=== PATIENT | female | born 1990 | race American Indian/Alaskan Native ===

== ENCOUNTER 2018-09-05 16:27 | Outpatient (REF) | payer SELFPAY ==
--- NOTE | 2018-09-05 15:45 | PAPFT_PTH ---
PATIENT: Chikis Chong LOC: [facility] U#:[id number] AGE/SX: 28/F ROOM: RE09/05/[address]: Emani Shrestha : 1990 BED: DIS: 09/05/2018 SPEC #: [id number] RECD: 09/05/18 18:02 STATUS: ROLANDO REGenna #: [id number] ANGEL: 09/05/18 15:[address]: Emani Shrestha DEPT: [facility] Cytology RECD BY: Yojana Granado Tissues: 1 - CX/ENDOCX FOR PAP SMEARS Procedures: PAP THIN PREP/UVM Screening Comments: [id number]
== END 2018-09-05 16:47 ==
LOC: NCHCN 16:27
PROVIDERS: PCP Nurse Practitioner Family; Visit Provider Nurse Practitioner Family
DX: Z12.4 Encounter for screening for malignant neoplasm of cervix (principal); Z00.00 Encounter for general adult medical examination without abnormal findings
CPT/HCPCS: 88142

== ENCOUNTER 2019-09-14 19:26 | Emergency (ER) | payer MEDICAID, SELFPAY ==
[2019-09-14 19:30] VITALS: BP 146/78; PULSE 84; RESP 14; TEMP 36.7; O2SAT 99
--- NOTE | 2019-09-14 20:05 | ED.GENADUL_ITS ---
Discharge Plan Disposition Patient Disposition: HOME Condition: Stable Discharge Details Chief Complaint: AnimalBite Clinical Impression: Bitten by dog, subsequent encounter Primary Care Provider: Emani Shrestha ED Provider: Slick Mcbride Home Meds and New Rx's Prescriptions: New amoxicillin-pot clavulanate [Augmentin] 875-125 mg tablet 1 tab PO BID Qty: 13 RF: 0 Discharge Instructions Instructions: Animal Bite (ED) Additional Instructions: Please take antibiotic as prescribed. Please continue to monitor wound and allow for Steri-Strips to fall off on their own. Please follow-up with general surgery for wound reassessment. Call for an appointment. It was recommended that you received tetanus immunization today. You declined recommended treatment. You understand that you may have life-threatening or lifestyle modifying disease as result of not receiving immunization. Please contact your primary care physician to arrange follow-up. Return to the ER for any worsening or new concerning symptoms. Referrals: Emani Shrestha [Primary Care Provider] - Merry Pedraza DO [OSTEOPATHIC DOCTOR] - Discharge Data Discharge Date/Time-TO BE ENTERED AT DEPARTURE: 09/14/19 20:20 Medical Decision Making 29-year-old female here 20 days status post dog bite to left forearm, initially closed with suture, wound dehisced with suture removal and Steri-Strips were applied, now with concern for mild swelling and discomfort in the area. There is no erythema, warmth, fluctuance or significant discharge from the wound. The wound appears to be healing well under Steri-Strips. Out of an abundance of caution, I will prescribe course of Augmentin as she did not complete course of cephalosporin as initially prescribed. Patient is not up-to-date on tetanus, infectious never had tetanus immunization. I recommended immunization/IG today. Patient refuses treatment. I specifically explained to her the benefit of immunization and risk of not being immunized. Patient verbalized understanding of my concern and potential consequences of not immunizing and still declined. HPI General Mode of arrival: ambulatory . Date/Time Provider Initiated Documentation: 09/14/19 19:48 . Limitations to Documentation: no limitations . Information obtained by: patient . HPI Narrative: 29-year-old female here with chief complaint of concern for wound infection. Patient is 20 days status post dog bite to left forearm, initially closed with suture at outside hospital, wound dehisced with suture removal and Steri-Strips were applied but follow-up with outside hospital, now here with concern for mild swelling and discomfort in the area. No modifiers. Patient denies discharge. No associated fever. Related Data Home Medications Medication Instructions Recorded Confirmed amoxicillin-pot clavulanate 1 tab PO BID #13 tab 09/14/19 [Augmentin] Previous Rx's Medication Instructions Recorded amoxicillin-pot clavulanate 1 tab PO BID #13 tab 09/14/19 [Augmentin] Allergies Allergy/AdvReac Type Severity Reaction Status Date / Time cephalexin [From Keflex] Allergy Mild Headache Unverified 09/14/19 19:36 General Stated Complaint: AnimalBite MEET: 4 Review of Systems Constitutional Constitutional: Denies fever(s) Integumentary/Breasts Skin/Breast: Reports as per [facility] Social History Smoking/Tobacco Use Status: Former Tobacco Use Alcohol Intake: never Drug use: Never Do you feel safe at home: Yes Do you feel safe in your relationship?: Yes Exam Const General: cooperative HENMT Mouth: moist mucous membranes Resp Effort & Inspection: normal respiratory effort and able to speak in complete sentences Cardio Rate: regular rate and not tachycardic Rhythm: regular rhythm Pulses: radial pulses present on the left 2+ (Affected extremity) Skin Wounds: wounds noted (Left forearm 2 cm, Steri-Strips intact, healing, no discharge, no erythema ) Other: Mild swelling about wound with no fluctuance Neuro General: patient alert, patient awake, patient oriented x3 and tone normal Extrem General: no edema Course Vital Signs Vital signs: Vital Signs Temperature 36.7 C 09/14/19 19:30 Pulse 84 09/14/19 19:30 Respiratory Rate 14 09/14/19 19:30 Blood Pressure 146/78 H 09/14/19 19:30 Pulse Oximetry 99 09/14/19 19:30 Temperature 36.7 C 09/14/19 19:30 Pulse 84 09/14/19 19:30 Respiratory Rate 14 09/14/19 19:30 Respiratory Effort 09/14/19 19:37 Blood Pressure 146/78 H 09/14/19 19:30 Blood Pressure Position Sitting 09/14/19 19:30 Pulse Oximetry 99 09/14/19 19:30 Oxygen Delivery Method Room Air 09/14/19 19:30 Oxygen Flow Rate 0 09/14/19 19:30 Pain Level 2 09/14/19 19:30
[2019-09-14] MEDS: Amoxicillin 875/Clav. 125 TAB PO (20:15)
== END 2019-09-14 20:20 | disposition home or self-care (01) ==
PROVIDERS: Emergency Provider Student in an Organized Health Care Education/Training Program; PCP Nurse Practitioner Family
DX: S51.852D Open bite of left forearm, subsequent encounter (principal); W54.0XXD Bitten by dog, subsequent encounter; Z48.01 Encounter for change or removal of surgical wound dressing; M79.632 Pain in left forearm; Z53.29 Procedure and treatment not carried out because of patient's decision for other reasons
CPT/HCPCS: 99283

== ENCOUNTER 2019-12-19 16:05 | Emergency (ER) | payer MEDICAID, SELFPAY ==
[2019-12-19 16:15] VITALS: BP 146/83; PULSE 82; RESP 16; TEMP 36.5; O2SAT 99
[2019-12-19 16:25] LABS: Bilirubin Negative (Negative); Blood Moderate (Negative); Glucose Negative (Negative); Ketones Negative (Negative); Leukocyte Esterase Moderate (Negative); Nitrite Negative (Negative); Urobilinogen 0.2 EU/dL (Up TO 0.2)
[2019-12-19 16:34] LABS: Clarity Sl Cloudy (Clear)
[2019-12-19 16:35] LABS: Bacteria Moderate HPF (Negative); C & S Indicated? Yes; Casts Negative LPF (Negative); Crystals Negative HPF (Negative); Epithelial Cells Few HPF (Negative); Mucus Negative (Negative); WBC >50 HPF (0-5)
--- NOTE | 2019-12-19 16:35 | ED.GENADUL_ITS ---
Discharge Plan Disposition Patient Disposition: HOME Condition: Stable Discharge Details Clinical Impression: UTI (urinary tract infection) Primary Care Provider: Emani Shrestha ED Provider: Kamran Garcia Home Meds and New Rx's Prescriptions: New nitrofurantoin monohyd/m-cryst [Macrobid] 100 mg capsule 100 mg PO Q12H 7 Days Qty: 14 RF: 0 Discharge Instructions Instructions: Urinary Tract Infection in Women (ED) Additional Instructions: Macrobid as directed. Gnhv-lof-vhyenpk Tylenol, Motrin, Azo as directed. Plenty of fluids to avoid dehydration. Please watch for new or worsening symptoms and return to the ER for any concerns. Otherwise I recommend reaching out your primary care provider tomorrow for prompt outpatient reevaluation Medical Decision Making 29-year-old female with UTI symptoms that began yesterday. Denies fever, nausea, vomiting, vaginal bleeding or discharge. Clinically she appears well, nontoxic. Will obtain urinalysis and test. Low suspicion for pyelonephritis. Low suspicion for STI. She did take a single Augmentin today Laboratory values reveal urine moderate blood, moderate leuk esterase, 10-20 red cells, greater than 50 white cells. Moderate bacteria. Culture pending. negative Will provide prescription for Macrobid. Patient comfortable this plan and has no additional questions or concerns. Medical Records Medical records reviewed: Yes I reviewed the patient's medical records. Lab Data Lab results reviewed: Yes I reviewed the patient's lab results. Lab results narrative: 12/19/19 16:10 Urine - Reflex from Ua Urine Culture - Pending Laboratory Tests Range/Units 12/19/19 16:10 Urine Color (Yellow) Yellow Urine Clarity (Clear) Sl cloudy Urine pH (5-8) 7.0 Ur Specific [place] (1.005-1.025) 1.010 Urine Protein (Negative) mg/dL Negative Urine Ketones (Negative) mg/dL Negative Urine Blood (Negative) Moderate H Urine Nitrite (Negative) Negative Urine Bilirubin (Negative) Negative Urine Urobilinogen (Up TO 0.2) EU/dL 0.2 Ur Leukocyte Esterase (Negative) Moderate H Urine RBC (0-2) HPF 10-20 H Urine WBC (0-5) HPF >50 H Ur Epithelial Cells (Negative) HPF Few Urine Crystals (Negative) HPF Negative Urine Bacteria (Negative) HPF Moderate Urine Casts (Negative) LPF Negative Urine Mucus (Negative) Negative Ur Culture Indicated? Yes Urine Glucose (Negative) mg/dL Negative HPI General Mode of arrival: ambulatory . Date/Time Provider Initiated Documentation: 12/19/19 16:25 . Limitations to Documentation: no limitations . Information obtained by: patient . HPI Narrative: This is a 29-year-old female who denies any significant past medical history. She reports UTI symptoms that began yesterday. Reports mild yesterday worse today. Lower abdominal pressure, urinary frequency, dysuria, low back aching. She denies any fever, nausea, vomiting, vaginal bleeding or discharge. She took a single Augmentin today that she had leftover from a dog bite. Also took Motrin. These seem to have helped with her symptoms. Denies any other symptoms, denies recent trauma Related Data Home Medications Medication Instructions Recorded Confirmed nitrofurantoin monohyd/m-cryst 100 mg PO Q12H 7 Days #14 cap 12/19/19 [Macrobid] Previous Rx's Medication Instructions Recorded nitrofurantoin monohyd/m-cryst 100 mg PO Q12H 7 Days #14 cap 12/19/19 [Macrobid] Allergies Allergy/AdvReac Type Severity Reaction Status Date / Time cephalexin [From Keflex] Allergy Mild Headache Unverified 12/19/19 16:18 General Stated Complaint: Urinary MEET: 4 Review of Systems Constitutional Constitutional: Denies fever(s) Cardiovascular Cardiovascular: Denies chest pain and Denies dyspnea Respiratory Respiratory: Denies dyspnea Gastrointestinal Gastrointestinal: Reports abdominal pain, Denies nausea and Denies vomiting Genitourinary Genitourinary: Denies abnormal vaginal bleeding, Reports dysuria and Denies vaginal discharge Musculoskeletal Musculoskeletal: Reports back pain Integumentary/Breasts Skin/Breast: Denies rash [facility] Social History Smoking/Tobacco Use Status: Former Tobacco Use Smoking risk assessment performed?: Yes Alcohol Intake: never Drug use: Never Do you feel safe at home: Yes Do you feel safe in your relationship?: Yes Exam Const General: cooperative, healthy appearing, comfortable and no acute distress Orientation: alert and awake [facility] Head: normal to inspection, normocephalic and atraumatic Mouth: moist mucous membranes Eyes Conjunctivae: conjunctivae normal Sclera: sclerae normal Neck Neck: normal visual inspection, full ROM, trachea midline and supple Resp Effort & Inspection: normal respiratory effort and able to speak in complete sentences Auscultation: clear to auscultation bilaterally Cardio Rate: regular rate Rhythm: regular rhythm GI Palpation: soft, not firm, no guarding, not rigid and nontender Back/Spine/Pelvis Back: back tenderness (Diffuse mild lumbar) Skin General skin exam: no rashes or lesions noted Neuro General: patient alert, patient awake, moves all extremities and no focal motor deficits Sensory Exam: no sensory deficits noted Psych Appearance: grossly normal Mental Status: mental status grossly normal Course Vital Signs Vital signs: Vital Signs Temperature 36.5 C 12/19/19 16:15 Pulse 82 12/19/19 16:15 Respiratory Rate 16 12/19/19 16:15 Blood Pressure 146/83 H 12/19/19 16:15 Pulse Oximetry 99 12/19/19 16:15 Temperature 36.5 C 12/19/19 16:15 Temperature Source Skin 12/19/19 16:15 Pulse 82 12/19/19 16:15 Respiratory Rate 16 12/19/19 16:15 Respiratory Effort Non-Labored 12/19/19 16:15 Blood Pressure 146/83 H 12/19/19 16:15 Blood Pressure Position Sitting 12/19/19 16:15 Pulse Oximetry 99 12/19/19 16:15 Oxygen Delivery Method Room Air 12/19/19 16:15 Oxygen Flow Rate 0 12/19/19 16:15 Pain Level 8 12/19/19 16:15 Lab/Test Results Lab/Test Results: POC Urine Test Start: 12/19/19 16:22 Freq: .Urine Test Status: Complete Protocol: [place] 12/19/19 16:23 [facility] [place] 12/19/19 16:23 [facility] [id number] Test(Urine)-POC POC- Test(urine) Negative POC- Test(urine) Negative
== END 2019-12-19 17:45 | disposition home or self-care (01) ==
PROVIDERS: Emergency Provider Physician Assistant; PCP Nurse Practitioner Family
DX: N39.0 Urinary tract infection, site not specified (principal)
CPT/HCPCS: 81025; 99283; 81003; 81015; 87086

== ENCOUNTER 2020-02-27 14:59 | Outpatient (REF) | payer MEDICAID, SELFPAY ==
[2020-02-27 20:04] LABS: TSH (W/Ref FT4) 1.92 uIU/mL (0.36-3.74)
[2020-02-27 22:30] LABS: ESR 5 mm/hr (0-20)
[2020-02-28 16:23] LABS: Rheumatoid Factor <8.6 IU/mL (<12.0)
[2020-02-29 10:18] LABS: Lyme Ab w Rflx to Lyme Confirm Negative (Negative)
[2020-02-29 15:13] LABS: ANA Interpretation Negative (Negative)
== END 2020-02-27 15:19 ==
LOC: NCHCN 14:59
PROVIDERS: PCP Nurse Practitioner Family; Visit Provider Nurse Practitioner Family
DX: M25.59 Pain in other specified joint (principal)
CPT/HCPCS: 85652; 84443; 86038; 86431; 86618

== ENCOUNTER 2020-03-19 04:12 | Outpatient (RCR) | payer MEDICAID, SELFPAY ==
--- NOTE | 2020-03-19 11:30 | HOLTER_ITS ---
APPROVED REPORT Exam Type: HOLTER MONITOR APPLICATION Reason for Test: heart flutter Patient Location: O Conclusion This is a 24-hour Holter monitor ordered for the indication of heart flutter. The patient was in normal sinus rhythm with an average heart rate of 90 bpm. There were no episodes of SVT nor any singular PACs. There were no episodes of ventricular tachycardia and rare PVCs. There were no episodes of atrial fibrillation, no pauses greater than 3 seconds and no evidence of hi gh degree heart block. There were multiple diary events all associated with normal sinus rhythm as well as an occasional sin gular PVC.
== END 2020-03-24 23:59 | disposition home or self-care (01) ==
LOC: RT 04:12
PROVIDERS: PCP Nurse Practitioner Family; Visit Provider Nurse Practitioner Family
DX: I49.8 Other specified cardiac arrhythmias (principal)
CPT/HCPCS: 93225; 93226

== ENCOUNTER 2020-08-14 11:19 | Outpatient (REF) | payer MEDICAID, SELFPAY ==
[2020-08-16 13:59] LABS: Lyme Ab w Rflx to Lyme Confirm Negative (Negative)
[2020-08-17 01:41] LABS: Anaplasma phagocytophilum Negative (Negative); B. miyamotoi PCR Negative (Negative); Babesia divergens/MO-1 Negative (Negative); Babesia duncani Negative (Negative); Babesia microti Negative (Negative); Ehrlichia chaffeensis Negative (Negative); Ehrlichia ewingii/canis Negative (Negative); Ehrlichia muris eauclairensis Negative (Negative)
== END 2020-08-14 11:20 | disposition home or self-care (01) ==
LOC: NCHCN 11:19
PROVIDERS: PCP Nurse Practitioner Family; Visit Provider Family Medicine
DX: W57.XXXA Bitten or stung by nonvenomous insect and other nonvenomous arthropods, initial encounter (principal); T14.8XXA Other injury of unspecified body region, initial encounter; F43.23 Adjustment disorder with mixed anxiety and depressed mood
CPT/HCPCS: 87798; 86618

== ENCOUNTER 2021-05-16 14:55 | Outpatient (REF) | payer MEDICAID, SELFPAY ==
--- NOTE | 2021-05-16 12:30 | PAPFT_PTH ---
PATIENT: Chikis Chong LOC: [facility]#:[id number] AGE/SX: 31/F ROOM: RE05/16/[address]: Aren Malhotra : 1990 BED: DIS: 05/16/2021 SPEC #: [id number] RECD: 05/19/21 12:53 STATUS: ROLANDO REQ #: [id number] ANGEL: 05/16/21 12:[address]: Aren Malhotra DEPT: [facility] Cytology RECD BY: Yojana Granado ENTERED: 05/19/21 12:54 SP TYPE: PAPFT OTHR DR: Emani Shrestha Tissues: 1 - CX/ENDOCX FOR PAP SMEARS Procedures: PAP THIN PREP/UVM Screening HPV DNA PROBE Comments: [id number]
== END 2021-05-16 14:56 | disposition home or self-care (01) ==
LOC: NCHCN 14:55
PROVIDERS: PCP Nurse Practitioner Family; Visit Provider Family Medicine
DX: Z12.4 Encounter for screening for malignant neoplasm of cervix (principal); Z11.51 Encounter for screening for human papillomavirus (HPV)
CPT/HCPCS: 88142; 87624

== ENCOUNTER 2021-11-10 18:24 | Outpatient (REF) | payer MEDICAID, SELFPAY ==
[2021-11-10 20:12] LABS: Abs Immature Grans 0.02 10^3/uL (0.0-0.06); Absolute Basophil Count 0.05 10^3/uL (0.0-0.2); Absolute Eosinophil Count 0.05 10^3/uL (0.0-0.7); Absolute Lymphocyte Count 2.14 10^3/uL (1.2-3.4); Absolute Monocyte Count 0.52 10^3/uL (0.1-0.8); Absolute Neutrophil Count 4.18 10^3/uL (1.2-6.7); Basophils % 0.7; Eosinophils % 0.7; HCT 37.1 % (36.0-46.0); HGB 12.7 g/dL (11.2-15.7); Immature Grans % 0.3; Lymphocytes % 30.7; MCH 31.1 pg (27.0-33.0); MCHC 34.2 % (32.0-36.0); MCV 91 fL (80-95); MPV 10.6 fL (8.0-11.0); Monocytes % 7.5; Neutrophils % 60.1; Platelet Count 293 10^3/uL (130-400); RBC 4.08 10^6/uL (3.93-5.22); RDW-SD 40.3 fL; WBC 6.96 10^3/uL (4.4-10.8)
[2021-11-10 20:40] LABS: ALT 21 U/L (14-59); AST 17 U/L (15-37); Albumin 4.3 g/dL (3.4-5.0); Alkaline Phosphatase 71 U/L (46-116); BUN 16 mg/dL (7-18); Bilirubin, Total 0.4 mg/dL (0.2-1.0); CREATININE 0.8 mg/dL (0.55-1.02); Calcium 9.4 mg/dL (8.5-10.1); Chloride 100 mmol/L (98-107); Estimated GFR 100.33 (mL/min/1.73m2); Glucose 107 mg/dL (74-106); Potassium 4.1 mmol/L (3.5-5.1); Sodium 138 mmol/L (136-145); Total Protein 8.1 g/dL (6.4-8.2)
== END 2021-11-10 18:25 | disposition home or self-care (01) ==
LOC: NCHCN 18:24
PROVIDERS: PCP Nurse Practitioner Family; Visit Provider Family Medicine
DX: F31.5 Bipolar disorder, current episode depressed, severe, with psychotic features (principal); F43.23 Adjustment disorder with mixed anxiety and depressed mood; I49.8 Other specified cardiac arrhythmias
CPT/HCPCS: 80053; 85025

== ENCOUNTER → 2021-11-13 03:03 | Outpatient (CLI) | payer MEDICAID, SELFPAY ==
--- NOTE | 2021-11-13 15:00 | DI.US_ITS ---
Exam(s) US RENAL EXAM: US RENAL CLINICAL HISTORY: FLANK PAIN, R10.9. TECHNIQUE: Hurt scale, color and spectral Doppler were used. COMPARISON: CT ABD PELVIS WITH CONTRAST from 06/05/2017 FINDINGS: Renal size in cm: Right: 11.7 left: 10.6 Echogenicity: Normal Hydronephrosis: No Cyst or mass: No Nephrolithiasis: No Bladder:Normal . Both ureteral jets were visualized. Prevoid vol:384 Postvoid vol:13 IMPRESSION: Negative renal ultrasound. DATA REPOSITORY:
== END ==
PROVIDERS: PCP Nurse Practitioner Family; Visit Provider Family Medicine
DX: R10.9 Unspecified abdominal pain (principal)
CPT/HCPCS: 76770

== ENCOUNTER 2023-02-17 10:03 | Outpatient (CLI) | payer MEDICAID, SELFPAY | END 2023-02-17 10:04 | disposition home or self-care (01) | LOC: CARDOPNVT 10:03 | PROVIDERS: PCP Nurse Practitioner Family; Visit Provider Nurse Practitioner Family | DX: I48.92 Unspecified atrial flutter (principal) | CPT/HCPCS: 93246 ==

== ENCOUNTER 2023-03-15 07:56 | Outpatient (CLI) | payer MEDICAID, SELFPAY ==
--- NOTE | 2023-03-16 08:49 | ZIOP_ITS ---
Date of service: 03/16/23 Time of Service: 08:50 14 Day Political Research Scientist Referring Provider:: Jerrod Indications:: Palpitations Note: This was a 14-day monitor done for palpitations. 1. The underlying rhythm is sinus rate range 59 to 170 bpm with average of 96 bpm. 2. Few PVCs, no V. tach 3. Few PACs, no SVT 4. No pauses 5. No atrial fibrillation 6. Patient's triggers were in sinus rhythm and occasionally with PVCs
== END 2023-03-15 07:57 | disposition home or self-care (01) ==
LOC: CARDOPNVT 07:56
PROVIDERS: PCP Nurse Practitioner Family; Visit Provider Internal Medicine Interventional Cardiology
DX: R00.2 Palpitations (principal); I49.1 Atrial premature depolarization

== ENCOUNTER 2023-04-10 11:20 | Emergency (ER) | payer MEDICAID, SELFPAY ==
[2023-04-10 11:22] VITALS: BP 164/97; PULSE 122; RESP 18; TEMP 36.8; O2SAT 99
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
[2023-04-10] MEDS: Acetaminophen 500 MG TAB 1000 MG PO (11:35)
--- NOTE | 2023-04-10 12:08 | DI.RAD_ITS ---
Exam(s) XR ANKLE RT COMPLETE XR FOOT RT COMPLETE EXAM: XR FOOT RT COMPLETE and XR ankle RT complete CLINICAL HISTORY: pain. TECHNIQUE: 2D digital imaging was performed of the right ankle and foot. Seven images were obtained . AP, oblique and lateral views were obtained. COMPARISON: No priors for comparison. FINDINGS: BONES: There is a nondisplaced fracture of the distal fibula which occurs at the level of the ankle j oint. On the lateral views, there is a question of a nondisplaced posterior malleolar fracture. No bony destructive lesion is seen. JOINTS: No dislocation present. There is mild widening of the medial joint space of the ankle. SOFT TISSUE: There is soft tissue swelling around the ankle and foot. IMPRESSION: 1. Nondisplaced fracture of the distal fibula at the level of the ankle mortise. 2. Question of a nondisplaced posterior malleolar fracture. 3. Widening of the medial ankle joint. 4. Soft tissue swelling around the ankle and foot. DATA REPOSITORY: RADIATION DOSE DELIVERED:
--- NOTE | 2023-04-10 12:23 | DI.VRAD_ITS ---
PROCEDURE INFORMATION: Exam: XR Right Foot Exam date and time: 04/10/2023 12:05 PM Age: 33 years old Clinical indication: Other: Pain S/P fall TECHNIQUE: Imaging protocol: Radiologic exam of the right foot. Views: 3 or more views. COMPARISON: CR XR ANKLE RT COMPLETE 04/10/2023 12:02 PM FINDINGS: Bones/joints: There is a small ankle joint effusion. There is a nondisplaced fracture of the distal fibula at the level of the distal tibiofibular syndesmosis. Soft tissues: Normal. IMPRESSION: Nondisplaced fracture of the distal fibula at the level of the tibiofibular syndesmosis. Dictated and Authenticated by: Nick Hutchison MD. Ordering:BRANT Deluna MD
--- NOTE | 2023-04-10 12:26 | DI.VRAD_ITS ---
PROCEDURE INFORMATION: Exam: XR Right Ankle Exam date and time: 04/10/2023 12:02 PM Age: 33 years old Clinical indication: Other: Pain S/P fall TECHNIQUE: Imaging protocol: Radiologic exam of the right ankle. Views: 3 or more views. COMPARISON: No relevant prior studies available. FINDINGS: Bones/joints: There is an oblique nondisplaced fracture of the distal fibula at the level of the distal tibiofibular syndesmosis. There is a small ankle joint effusion. There is a tiny Achilles enthesophyte. Tiny inferior calcaneal spur. Soft tissues: There is soft tissue swelling overlying the lateral malleolus. There is borderline widening the medial clear space. No soft tissue emphysema. IMPRESSION: Oblique nondisplaced fracture of the distal fibula at the level of the distal tibiofibular syndesmosis with overlying soft tissue swelling and small ankle joint effusion. Borderline widening the medial clear space. If clinical suspicion for instability imaging with valgus stress is recommended. Dictated and Authenticated by: Nick Hutchison MD. Ordering:BRANT Deluna MD
== END 2023-04-10 12:48 | disposition home or self-care (01) ==
LOC: ER 12:19
PROVIDERS: Emergency Provider Emergency Medicine; PCP Family Medicine
DX: S82.891A Other fracture of right lower leg, initial encounter for closed fracture (principal); W10.8XXA Fall (on) (from) other stairs and steps, initial encounter; M79.671 Pain in right foot; M25.571 Pain in right ankle and joints of right foot
CPT/HCPCS: 29515; 99284; 73610; 73630; 99283

== ENCOUNTER 2023-06-13 19:11 | Emergency (ER) | payer MEDICAID, SELFPAY ==
[2023-06-13 19:16] VITALS: BP 175/97; PULSE 118; RESP 18; TEMP 36.9; O2SAT 98
--- NOTE | 2023-06-13 19:38 | ED.GENADUL_ITS ---
Discharge Plan Disposition Patient Disposition: Home Condition: Improving Discharge Details Clinical Impression: Dark stools Primary Care Provider: Aren Malhotra ED Provider: Sj Perdomo Home Meds and New Rx's Prescriptions: New pantoprazole 40 mg tablet,delayed release (DR/EC) 40 mg PO DAILY 30 Days Qty: 30 0RF No Action quetiapine [Seroquel] 50 mg tablet 50 mg PO QHS Discharge Instructions Instructions: Gastritis (ED), Gastrointestinal Bleeding (ED) Additional Instructions: Please follow-up with GI referral and primary care physician. Return to the emergency department for any worsening symptoms HPI General Date/Time Provider Initiated Documentation: 06/13/23 19:14 . HPI Narrative: 33-year-old female presents endorsing vomiting blood and passing black stool today, endorses heavy NSAID use in the past. No history of endoscopy upper or lower. Related Data Home Medications Medication Instructions Recorded Confirmed quetiapine 50 mg tablet (Seroquel) 50 mg PO QHS 08/15/20 06/13/23 pantoprazole 40 mg tablet,delayed 40 mg PO DAILY 30 days #30 tabs 06/13/23 release Previous Rx's Medication Instructions Recorded pantoprazole 40 mg tablet,delayed 40 mg PO DAILY 30 days #30 tabs 06/13/23 release Allergies Allergy/AdvReac Type Severity Reaction Status Date / Time cephalexin [From Keflex] Allergy Mild Headache Unverified 06/13/23 19:18 trazodone AdvReac Headache Unverified 06/13/23 19:18 General Stated Complaint: Nausea/Vomit/Diar MEET: 3 Review of Systems Narrative: Review of Systems Constitutional: negative Eyes: negative ENT: negative Cardiovascular: negative Respiratory: negative Gastrointestinal: Vomiting blood, dark black stool : negative Musculoskeletal: negative Skin: negative Neurologic: negative Psych: negative Exam Narrative Exam Narrative: Physical Examination General: alert, awake, cooperative, resting comfortably, no acute distress HEENT: normocephalic, atraumatic; PERRL, EOM intact, conjunctiva normal; no nasal discharge; moist mucous membranes, black discoloration of tongue Neck: supple, trachea midline; full ROM Chest: normal to inspection GI: abdomen soft, non-tender, non-distended; no palpable mass or hepatosplenomegaly Skin: no lesions, rashes or trauma appreciated Neuro: AAOx3, normal speech, moving all extremities Course Vital Signs Vital signs: Vital Signs Temperature 36.9 C 06/13/23 19:16 Pulse 118 H 06/13/23 19:16 Respiratory Rate 18 06/13/23 19:16 Blood Pressure 175/97 H 06/13/23 19:16 Pulse Oximetry 98 06/13/23 19:16 Temperature 36.9 C 06/13/23 19:16 Temperature Source Oral 06/13/23 19:16 Pulse 118 H 06/13/23 19:16 Respiratory Rate 18 06/13/23 19:16 Respiratory Effort Normal, Non-Labored 06/13/23 19:19 Blood Pressure 175/97 H 06/13/23 19:16 Blood Pressure Position Supine 06/13/23 19:16 Pulse Oximetry 98 06/13/23 19:16 Oxygen Delivery Method Room Air 06/13/23 19:16 Oxygen Flow Rate 0 06/13/23 19:16 Pain Level 0 06/13/23 19:16 Medical Decision Making 33-year-old female presents endorsing vomiting blood and passing dark black stool today, believes she may have a stomach ulcer, history of heavy NSAID use, patient resting comfortably no acute distress no active vomiting abdomen soft nontender nondistended moist mucous membranes, of note patient has black discoloration to her tongue consistent with Pepto-Bismol use. Tachycardic on arrival, nontoxic-appearing. Consider gastritis versus Manuela-Desai tear versus duodenitis versus gastric ulcer. Screening labs fluids pantoprazole Zofran close reassessment 22: 44 resting comfortably no acute distress. No vomiting or bowel movement here in department. Given GI referral and strict return precautions. Will be started on pantoprazole, counseled to limit her NSAID use. Quality:SDIL Health Related Social Needs: No Data to Display PFSH All Active Problems (Updated 06/13/23 @ 22:45 by Sj Perdomo MD) Dark stools (Acute) (Acute) Medical History (Updated 06/13/23 @ 22:45 by Sj Perdomo MD) Bipolar 1 disorder, depressed, severe PTSD (post-traumatic stress disorder) Was held up at [facility] @19yrs Periodic heart flutter Facial pain, atypical Adjustment disorder with mixed anxiety and depressed mood Social History (Updated 08/15/20 @ 11:12 by Nakita Gutiérrez) Smoking/Tobacco Use Status: Current every day Tobacco Type: cigarettes Smoking risk assessment performed?: Yes Alcohol Intake: never Drug use: Never Substance use type: does not use Do you feel safe at home: Yes Do you feel safe in your relationship?: Yes History History 5 Para 1 Hx # Term Pregnancies 1 Multiple births Hx # Pregnancies Ectopic pregnancies AB induced 3 Hx Number of Living Children 1 AB spontaneous Past Pregnancies Del. Date GA/Weeks # Preg Succ Route Wgt Sex Labor Lgth Anesth esia Location Prov Complic 06/24/16 No Delivery Date: 06/24/16 Last Updated by: Sommer Gordon MD medical TOP @pp PAWSS Have you Been Recently Intoxicated or Drunk Within the Last 30 days?: Yes Have you Ever Experienced Previous Episodes of Alcohol Withdrawal?: No Have you ever Experienced Withdrawal Seizures?: No Have you ever Experienced Delirium Tremens(DT)s?: No Have you ever undergone Alcohol Rehabilitation Treatment (i.e, inpt ot out patient treatment programs)?: No Have you ever Experienced Blackouts?: No Have you ever Combined Alcohol with other Downers within the last 90 days?: No Have you ever Combined Alcohol with any other Substance of Abuse during the last 90 days?: No Positive Blood Alcohol level on Presentation? [PCS.BAL]: No Evidence of Increased Autonomic Activity (i.e. HR>120, tremor, sweating, agitation, nausea)?: No Result: 1
[2023-06-13 19:44] LABS: Abs Immature Grans 0.04 10^3/uL (0.0-0.06); Absolute Basophil Count 0.08 10^3/uL (0.0-0.2); Absolute Eosinophil Count 0.17 10^3/uL (0.0-0.7); Absolute Lymphocyte Count 3.44 10^3/uL (1.2-3.4); Absolute Monocyte Count 0.75 10^3/uL (0.1-0.8); Basophils % 0.8; Eosinophils % 1.6; HCT 38.9 % (36.0-46.0); HGB 13.1 g/dL (11.2-15.7); Immature Grans % 0.4; Lymphocytes % 32.8; MCH 30.5 pg (27.0-33.0); MCHC 33.7 % (32.0-36.0); MCV 91 fL (80-95); MPV 9.6 fL (8.0-11.0); Monocytes % 7.2; Neutrophils % 57.2; Platelet Count 388 10^3/uL (130-400); RBC 4.29 10^6/uL (3.93-5.22); RDW 13.1 % (11.7-14.6); RDW-SD 43.7 fL; WBC 10.48 10^3/uL (4.4-10.8)
[2023-06-13] MEDS: Ondansetron 4 MG/2 ML VIAL IVP (19:55)
[2023-06-13] MEDS: Pantoprazole 40 MG VIAL IVP (19:55)
[2023-06-13] MEDS: Normal Saline 1,000 ML 1000 ML IV (19:56)
[2023-06-13 20:00] LABS: PTT Activated 25.1 sec (23.6-32.8); Prothrombin Time 9.9 sec (9.1-11.1)
[2023-06-13 20:01] LABS: ALT 23 U/L (14-59); AST 24 U/L (15-37); Albumin 4.3 g/dL (3.4-5.0); Alkaline Phosphatase 119 U/L (46-116); Anion Gap 12.5 mmol/L (3-11); BUN 9 mg/dL (7-18); Bilirubin, Total 0.4 mg/dL (0.2-1.0); CO2 27.5 mmol/L (21.0-32.0); CREATININE 0.7 mg/dL (0.55-1.02); Calcium 8.9 mg/dL (8.5-10.1); Chloride 100 mmol/L (98-107); Estimated GFR 116.31 (mL/min/1.73m2); Glucose 138 mg/dL (74-106); Lipase 39 U/L (16-77); Potassium 3.7 mmol/L (3.5-5.1); Sodium 140 mmol/L (136-145); Total Protein 8.3 g/dL (6.4-8.2)
[2023-06-13 21:26] LABS: Bilirubin Small (Negative); Blood Moderate (Negative); Clarity Sl Cloudy (Clear); Glucose Negative (Negative); Ketones 40 mg/dL (Negative); Leukocyte Esterase Negative (Negative); Nitrite Negative (Negative)
[2023-06-13 21:35] LABS: Bacteria Few HPF (Negative); C & S Indicated? No/Sq. Contamination; Casts Negative LPF (Negative); Crystals Negative HPF (Negative); Epithelial Cells Many HPF (Negative); Mucus Moderate (Negative); RBC 0-2 HPF (0-2); WBC 0-2 HPF (0-5)
--- NOTE | 2023-06-13 22:44 | NUR.NOTE ---
Referral to Care Management to refer patient to [facility] in 1-2 weeks for concern for GI Bleed.Nursing Note:
[2023-06-13 22:49] VITALS: BP 137/62; PULSE 79; RESP 16; O2SAT 99
== END 2023-06-13 22:50 | disposition home or self-care (01) ==
PROVIDERS: Emergency Provider Emergency Medicine; PCP Family Medicine
DX: K92.1 Melena (principal); F17.210 Nicotine dependence, cigarettes, uncomplicated
CPT/HCPCS: 80053; 83690; 86850; 86900; 86901; 96361; 96374; 96375; 99284; 81003; 81015; 85025; 85610; 85730; 99283; J2405; J2470